=== PATIENT | female | born 1945 | race Caucasian/White ===

== ENCOUNTER 2020-01-04 16:31 | Emergency (ER) | payer MEDICARE, BC ==
[~2020-01-04] VITALS: Ht 157.5 cm; Wt 57.2 kg
[~2020-01-04 16:31] MED LIST: CEPHALEXIN500 MG ORAL; NKM; NORCO 5-325 TA1 EACH ORAL
[2020-01-04 17:00] VITALS: BP 162/85
[2020-01-04] MEDS ORDERED: Surgicel 4in x 8in TOPIC ONE ×2 (17:00→17:30)
--- NOTE | 2020-01-04 17:01 | NUR ---
ED Nurse Note:pt. came from home with right thumb laceration from knife today, wound was cleaned
--- NOTE | 2020-01-04 17:24 | Emergency Room Report ---
History of Present Illness General Chief Complaint: Laceration Source: Patient Present Illness HPI 74-year-old female with no signal past medical history currently taking baby aspirin on daily basis here secondary to right thumb laceration. Patient reports that she was using a sharp knife cutting potatoes that she excellently cut the tip of her finger. Active bleeding noted however there is an avulsion laceration. Patient has range of motion and has full strength. Denies any tingling or numbness. Up-to-date with tetanus shot. Bleeding stopped after soaking the wound and applying Surgicel. At this time no sutures or Dermabond needed. Patient deferred x-ray Allergies: Coded Allergies: SULFA (SULFONAMIDE ANTIBIOTICS) (Verified Allergy, 02/19/13) COVID-19 Screening Contact w/high risk pt: No Experienced COVID-19 symptoms?: No COVID-19 Testing performed PROCEDURE TECH: No Patient History Past Medical History: see triage record Past Surgical History: none Pertinent Family History: none Now: No Immunizations: UTD Reviewed Nursing Documentation: PMH: Agreed; PSxH: Agreed Review of Systems All Other Systems: negative except mentioned in HPI Physical Exam Vital Signs Date Time Temp Pulse Resp B/P (MAP) Pulse Ox O2 Delivery O2 Flow Rate FiO2 01/04/20 16:35 98.4 67 19 162/85 (110) 95 Room Air Sp02 EP Interpretation: reviewed, normal General Appearance: no apparent distress, alert, GCS 15, non-toxic Head: normocephalic, atraumatic Eyes: bilateral eye normal inspection, bilateral eye PERRL ENT: hearing grossly normal, normal pharynx, no angioedema, normal voice Neck: full range of motion, supple/symm/no masses Respiratory: chest non-tender, lungs clear, normal breath sounds, speaking full sentences Cardiovascular #1: regular rate, rhythm, no edema Cardiovascular #2: 2+ radial (R), 2+ radial (L) Gastrointestinal: normal bowel sounds, non tender, soft, non-distended, no guarding, no rebound Rectal: deferred Musculoskeletal: back normal Neurologic: alert Psychiatric: judgement/insight normal, memory normal, mood/affect normal, no suicidal/homicidal ideation Skin: laceration - Small avulsion laceration right thumb Lymphatic: no adenopathy Procedures Laceration/Wound Repair Laceration/Wound Repair : Consent: Verbal Wound Location: upper extremity - right thumb Wound's Depth, Shape: superficial Wound Length (cm): 0 Wound Explored: clean Sterile Dressing Applied?: Yes Splint Applied?: Yes Patient Tolerated: Well Complications: None Progress Surgicel and proper bandage applied Medical Decision Making PA Attestation All diagnoses and treatment plans were reviewed and discussed with my supervising physician Dr. Carias Diagnostic Impression: Primary Impression: Finger laceration ER Course 74-year-old female with no signal past medical history currently taking baby aspirin on daily basis here secondary to right thumb laceration. Patient reports that she was using a sharp knife cutting potatoes that she excellently cut the tip of her finger. Active bleeding noted however there is an avulsion laceration. Patient has range of motion and has full strength. Denies any tingling or numbness. Up-to-date with tetanus shot. Bleeding stopped after soaking the wound and applying Surgicel. At this time no sutures or Dermabond needed. Patient deferred x-ray Ddx considered but are not limited to : Superficial laceration, deep laceration, tendon involvement with laceration, laceration with foreign body Vital signs: are WNL, pt. is afebrile H&PE are most consistent with: Finger laceration ORDERS: Mupirocin ointment ED INTERVENTIONS: Wound clean and dressed DISCHARGE: At this time pt. is stable for d/c to home. Will provide printed patient care instructions, and any necessary prescriptions. Care plan and follow up instructions have been discussed with the patient prior to discharge. Patient to follow primary doctor, take medication as directed, if worsening symptoms return to the emergency room Last Vital Signs Date Time Temp Pulse Resp B/P (MAP) Pulse Ox O2 Delivery O2 Flow Rate FiO2 01/04/20 17:00 98.4 19 162/85 95 Room Air 01/04/20 16:35 67 Disposition: HOME, SELF-CARE Condition: Stable Scripts Mupirocin* (MUPIROCIN*) 22 Gm Oint...g. 1 APPLIC TOPIC THREE TIMES A DAY for 22 Days, GM Prov: Bandar Rodriguez 01/04/20 Patient Instructions: Laceration Care, Adult Additional Instructions: Take medication as directed, follow with your primary care provider, if worsening symptom return to the emergency room Bandar Rodriguez Jan 04, 2020 17:24
[2020-01-04] MEDS ORDERED: MUPIROCIN22 GM TOPIC (17:25)
[2020-01-04 17:50] VITALS: BP 162/85
--- NOTE | 2020-01-04 17:50 | NUR ---
ED Nurse Note:dressing was placed on wound Pt cleared by health care Provider for discharge. DC instructions/prescription was given and explained to pt and verbalized understanding of teachings. All medical deviecs such as ID band removed. Pt is AAO x4, ambulatory and left with all personal belongings.
== END 2020-01-04 17:50 | disposition home or self-care (01) ==
LOC: EMR 16:55
DX: S61.011A Laceration without foreign body of right thumb without damage to nail, initial encounter (principal); W26.0XXA Contact with knife, initial encounter; Y93.G1 Activity, food preparation and clean up; Y92.9 Unspecified place or not applicable; Z88.2 Allergy status to sulfonamides
CPT/HCPCS: 99282